=== PATIENT | male | born 1955 | race Caucasian/White ===

== ENCOUNTER 2019-11-03 13:56 | Emergency (ER) | payer SELFPAY ==
[~2019-11-03] VITALS: Ht 182.9 cm; Wt 86.2 kg
== END 2019-11-03 16:09 | disposition home or self-care (01) ==
LOC: ER 13:56
DX: S06.0X9A Concussion with loss of consciousness of unspecified duration, initial encounter (principal); S01.01XA Laceration without foreign body of scalp, initial encounter; Z23 Encounter for immunization; V84.7XXA Person on outside of special agricultural vehicle injured in nontraffic accident, initial encounter
CPT/HCPCS: 12001; 70450; 90471; 90714; 99284-25

== ENCOUNTER 2024-03-23 09:09 | Day surgery (SDC) | payer OTHER ==
[~2024-03-23] VITALS: Ht 182.9 cm; Wt 83.5 kg
[~2024-03-23 09:09] MED LIST: Lactated Ringer's 1,000 ML IV ONE; MELO7.5 PO; ZOLP10 PO; propofoL 50 ML IV ONE
[2024-03-23] MEDS ORDERED: Doxycycline Mo100 M1 (09:24)
[2024-03-23] MEDS ORDERED: IBUP200 (09:24)
[2024-03-23] MEDS ORDERED: FLOMAX0.4 MG (09:28)
[2024-03-23] MEDS ORDERED: Lactated Ringer's 1,000 ML IV ONE (10:14)
[2024-03-23 11:13] VITALS: BP 116/83
== END 2024-03-23 11:14 | disposition home or self-care (01) ==
LOC: ORSCSDS 09:09
PROVIDERS: Specialist
PROC: 0DBM8ZX Excision of Descending Colon, Via Natural or Artificial Opening Endoscopic, Diagnostic (ICD-10-PCS; principal; 2024-03-23 10:15)
DX: Z12.11 Encounter for screening for malignant neoplasm of colon (principal); D12.4 Benign neoplasm of descending colon; K64.8 Other hemorrhoids; K57.30 Diverticulosis of large intestine without perforation or abscess without bleeding; Z86.0101 Personal history of adenomatous and serrated colon polyps; K21.9 Gastro-esophageal reflux disease without esophagitis; E78.5 Hyperlipidemia, unspecified; Z79.899 Other long term (current) drug therapy
CPT/HCPCS: 88305; J2704; J7120